=== PATIENT | male | born 1975 | race Caucasian/White ===

== ENCOUNTER 2016-08-08 23:20 | Emergency (ER) | payer BC, OTHER ==
[2016-08-08 23:26] VITALS: BP 142/86; PULSE 86; TEMP 97.8; BMI 35.1
--- NOTE | 2016-08-09 00:28 | PDOC ---
History of Present Illness - General Chief Complaint: Ear Problem Stated Complaint: POSSIBLE EAR INFECTION Time Seen by Provider: 08/08/16 23:35 Past History - Past Medical History Allergies/Adverse Reactions: Allergies Allergy/AdvReac Type Severity Reaction Status Date / Time No Known Allergies Allergy Verified 08/08/16 23:23 Home Medications: Ambulatory Orders Cefdinir [Omnicef -] 300 mg PO ONCE 08/08/16 Fluticasone Propionate [Flovent Diskus] 50 mcg IH ASDIR 08/08/16 Other medical history: denies - Psycho/Social/Smoking Cessation Hx Suicidal Ideation: No Smoking History: Current every day smoker Have you smoked in the past 12 months: No Number of Cigarettes Smoked Daily: 7 Information on smoking cessation initiated: Yes 'Breaking Loose' booklet given: 08/08/16 Hx Alcohol Use: No Drug/Substance Use Hx: No Review of Systems - Review of Systems Able to Perform ROS?: Yes Comments:: 08/09/16 00:29 CONSTITUTIONAL: Absent: fever, chills, diaphoresis, generalized weakness, malaise, loss of appetite HEENT: B/L ear fullness Absent: rhinorrhea, nasal congestion, throat pain, throat swelling, difficulty swallowing, mouth swelling, ear pain, eye pain, visual Changes CARDIOVASCULAR: Absent: chest pain, loss of consciousness, palpitations, irregular heart rate, peripheral edema RESPIRATORY: Absent: cough, shortness of breath, dyspnea with exertion, orthopnea, wheezing, stridor, hemoptysis GASTROINTESTINAL: Absent: abdominal pain, abdominal distension, nausea, vomiting, diarrhea, constipation, melena, hematochezia GENITOURINARY: Absent: dysuria, frequency, urgency, hesitancy, hematuria, flank pain, genital pain MUSCULOSKELETAL: Absent: myalgia, arthralgia, joint swelling SKIN: Absent: rash, itching, pallor HEMATOLOGIC/IMMUNOLOGIC: Absent: easy bleeding, easy bruising, lymphadenopathy, frequent infections ENDOCRINE: Absent: unexplained weight gain, unexplained weight loss, heat intolerance, cold intolerance NEUROLOGIC: Absent: headache, focal weakness or paresthesias, dizziness, unsteady gait, seizure, mental status changes, bladder or bowel incontinence PSYCHIATRIC: Absent: anxiety, depression, suicidal or homicidal ideation, hallucinations. Is the patient limited Italian proficient: No *Physical Exam - Vital Signs Last Vital Signs Temp Pulse Resp BP Pulse Ox 97.8 F 86 18 142/86 97 01/10/17 23:24 08/08/16 23:24 08/08/16 23:24 08/08/16 23:24 08/08/16 23:24 - Physical Exam Comments: 08/09/16 00:29 GENERAL: Well developed, well nourished. Awake and alert. No acute distress. HEENT: Normocephalic, atraumatic. PERRLA, EOMI. No conjunctival pallor. Sclera are non- icteric. Moist mucous membranes. Oropharynx is clear. NECK: Supple. Full ROM. No JVD. Carotid pulses 2+ and symmetric, without bruits. No thyromegaly. No lymphadenopathy. CARDIOVASCULAR: Regular rate and rhythm. No murmurs, rubs, or gallops. Distal pulses are 2+ and symmetric. PULMONARY: No evidence of respiratory distress. Lungs clear to auscultation bilaterally. No wheezing, rales or rhonchi. ABDOMINAL: Soft. Non-tender. Non-distended. No rebound or guarding. No organomegaly. Normoactive bowel sounds. MUSCULOSKELETAL Normal range of motion at all joints. No bony deformities or tenderness. No CVA tenderness. EXTREMITIES: No cyanosis. No clubbing. No edema. No calf tenderness. SKIN: Warm and dry. Normal capillary refill. No rashes. No jaundice. NEUROLOGICAL: Alert, awake, appropriate. Cranial nerves 2-12 intact. No deficits to light touch and temperature in face, upper extremities and lower extremities. No motor deficits in the in face, upper extremities and lower extremities. Normoreflexic in the upper and lower extremities. Normal speech. Toes are down- going bilaterally. Gait is normal without ataxia. PSYCHIATRIC: Cooperative. Good eye contact. Appropriate mood and affect. *DC/Admit/Observation/Transfer Diagnosis at time of Disposition: Fullness in ear Qualifiers: Laterality: bilateral Qualified Code(s): H93.8X3 - Other specified disorders of ear, bilateral - Discharge Dispostion Disposition: HOME Condition at time of disposition: Stable - Referrals Referrals: Hany Aguirre MD [Staff Physician] - - Patient Instructions Additional Instructions: Follow with an ENT physician or the one listed on your discharge forms. Tried to avoid persistently blowing your nose Return back to the emergency department for severe or worsening symptoms Progress Note - Progress Note Progress Note: 40-year-old male presents to the emergency department complaining of a sensation of fullness to bilateral ears 2 months. 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 Patient notices when he doesn't he is not working, he doesn't blow his nose and he wouldn't have the fullness sensation to the ears. He denies pain, headaches, dizziness, lightheadedness. Patient denies any pain. Patient says he constantly blows his nose because the environment at work is "justa".
== END 2016-08-09 00:36 | disposition home or self-care (01) ==
LOC: JERFT 23:20
DX: H93.8X3 Other specified disorders of ear, bilateral (principal)
CPT/HCPCS: 99281-25